=== PATIENT | female | born 1960 | race Caucasian/White ===

== ENCOUNTER 2017-07-23 07:56 | Emergency (ER) | payer OTHER ==
[~2017-07-23] VITALS: Ht 177.8 cm; Wt 90.7 kg
[2017-07-23] MEDS ORDERED: TETRACAINE HCL 0.5% OPTH SOLN 4 ML BTL ONE (08:11)
[2017-07-23] MEDS ORDERED: TETRACAINE HCL 0.5% OPTH SOLN 4 ML BTL OP ONE (08:15)
[2017-07-23] MEDS ORDERED: HYDROCODONE/APAP 5MG-325MG TAB PO PRN (08:15)
[2017-07-23] MEDS ORDERED: FLUORESCEIN SOD(OPTH) 1 MG STRP OP ONE (08:15)
[2017-07-23] MEDS: TOBRAMYCIN 0.3% (OPTH) 5 ML BTL OP SCH ×2 (08:30→08:50)
== END 2017-07-23 08:57 | disposition home or self-care (01) ==
LOC: ER 07:56
DX: H57.12 Ocular pain, left eye (principal); H10.89 Other conjunctivitis; M79.7 Fibromyalgia
CPT/HCPCS: 99282; 99283

== ENCOUNTER 2024-05-23 10:46 | Emergency (ER) | payer MEDICARE, OTHER ==
[~2024-05-23] VITALS: Ht 177.8 cm; Wt 82.4 kg
[2024-05-23 11:02] VITALS: PULSE 87; RESP 18; TEMP 97.7
[2024-05-23 12:46] VITALS: BP 136/84; PULSE 82; RESP 18; TEMP 98; O2SAT 98
== END 2024-05-23 12:40 | disposition home or self-care (01) ==
LOC: FSED 10:49
DX: H53.2 Diplopia (principal); M79.7 Fibromyalgia
CPT/HCPCS: 70450; 99283

== ENCOUNTER 2024-08-01 13:35 | Inpatient (IN) | payer MEDICARE ==
[~2024-08-01] VITALS: Ht 177.8 cm; Wt 84.4 kg
[2024-08-01 13:47] VITALS: TEMP 97.9
[2024-08-01] MEDS: ONDANSETRON HCL INJ 2MG/ML 2ML 2 MG/ML VIAL IV ONE (14:14)
[2024-08-01] MEDS: FAMOTIDINE 20 MG/2 ML VIAL IV ONE (14:14)
[2024-08-01] MEDS: SODIUM CHLORIDE 0.9% 1000ML 1,000 ML IV STA (14:15)
[2024-08-01] MEDS: KETOROLAC TROMETHAMINE 30 MG/ML VIAL IV ONE (14:15)
[2024-08-01 15:15] LABS: CREATININE, SERUM 0.78 mg/dL (0.57-1.11)
[2024-08-01] MEDS: Morphine 4mg INJECTION 4 MG/ML INJ IV ONE (15:22)
[2024-08-01 15:26] LABS: TOTAL PROTEIN 7.1 g/dL (6.5-8.1)
[2024-08-01 16:12] VITALS: PULSE 75; RESP 18
[2024-08-01] MEDS ORDERED: DIPHENHYDRAMINE HCL INJ 50 MG/ML VIAL IV PRN (17:30)
[2024-08-01 17:55] VITALS: BP 155/77; PULSE 77; RESP 18; TEMP 98.8; O2SAT 96
[2024-08-01] MEDS ORDERED: CYMBALTA60 MG PO (18:17)
[2024-08-01] MEDS ORDERED: INDOMETHACIN25 MG PO (18:17)
[2024-08-01] MEDS: LACTATED RINGER'S 1,000 ML IV SCH (18:22)
[2024-08-01] MEDS: ONDANSETRON HCL INJ 2MG/ML 2ML 2 MG/ML VIAL IV PRN (18:22)
[2024-08-01] MEDS: HYDROMORPHONE 1MG/1ML INJ IV PRN (18:22)
[2024-08-01 20:00] VITALS: BP 128/71; PULSE 81; RESP 20; TEMP 98.6; O2SAT 94
[2024-08-02] VITALS (11 sets, daily range): BP systolic 91–128; BP diastolic 45–64; PULSE 70–86; RESP 17–20; TEMP 98–99.1; O2SAT 93–97
[2024-08-02 06:23] LABS: BASOPHILS % 0.3 % (0.0-1.0); EOSINOPHILS # (AUTO) 0.1 (0.0-0.4); EOSINOPHILS % 1.1 % (0.0-6.0); HEMATOCRIT 33.1 % (34.2-44.1); HEMOGLOBIN 10.8 g/dL (12.0-16.0); LYMPHOCYTES # (AUTO) 1.4 (1.0-3.2); MEAN CORPUSCULAR HEMOGLOBIN 30.1 pg (28-32); MEAN CORPUSCULAR HGB CONC 32.6 g/dL (31-35); MEAN CORPUSCULAR VOLUME 92.2 fL (81-99); MONOCYTES # (AUTO) 0.4 (0.2-0.8); MONOCYTES % 5.9 % (4.4-11.3); NEUTROPHILS # (AUTO) 4.2 (2.1-6.9); NEUTROPHILS % 69.4 % (38.7-80.0); PLATELET COUNT 144 x10e3/uL (140-360); RED BLOOD COUNT 3.59 x10e6/uL (3.6-5.1); RED CELL DISTRIBUTION WIDTH 13.2 % (11.7-14.4); WHITE BLOOD COUNT 6.09 x10e3/uL (4.8-10.8)
[2024-08-02 06:49] LABS: ALBUMIN 3.3 g/dL (3.5-5.0); ANION GAP 12.9 mmol/L (8-16); BILIRUBIN,DIRECT 0.5 mg/dL (0.0-0.5); CALCIUM 8.2 mg/dL (8.4-10.2); CREATININE, SERUM 0.73 mg/dL (0.57-1.11); POTASSIUM 3.9 mmol/L (3.5-5.1); TOTAL PROTEIN 5.8 g/dL (6.5-8.1)
[2024-08-02 07:09] LABS: CHOL/HDL RATIO 3.2 (3.0-3.6); MAGNESIUM 1.9 MG/DL (1.3-2.1); PHOSPHORUS 3.8 MG/DL (2.3-4.7)
[2024-08-02] MEDS: FAMOTIDINE 20 MG/2 ML VIAL IV SCH (08:31)
[2024-08-02] MEDS ORDERED: ONDANSETRON HCL INJ 2MG/ML 2ML 2 MG/ML VIAL IV PRN (10:45)
[2024-08-02] MEDS ORDERED: CHLORDIAZEPOXIDE HCL 25 MG CAP PO PRN (10:45)
[2024-08-02] MEDS ORDERED: ACETAMINOPHEN 325 MG TAB PO PRN (10:45)
[2024-08-02] MEDS ORDERED: LORAZEPAM INJ 2 MG/ML VIAL IV PRN (10:45)
[2024-08-02] MEDS: CHLORDIAZEPOXIDE HCL 10 MG CAP PO SCH (11:03)
[2024-08-02] MEDS: LACTATED RINGER'S 1,000 ML IV SCH (18:40)
[2024-08-02] MEDS: HYDROMORPHONE 2MG/ML IV PRN (22:22)
[2024-08-02 23:57] LABS: % IRON SATURATION 59 % (15-50); IRON 175 ug/dL (50-170); TOTAL IRON BINDING CAPACITY 298 ug/dL (261-478); TRANSFERRIN 213 mg/dL (180-382)
[2024-08-03] VITALS (9 sets, daily range): BP systolic 91–129; BP diastolic 43–67; PULSE 58–83; RESP 17–21; TEMP 97.5–99; O2SAT 92–97
[2024-08-03] MEDS: METOCLOPRAMIDE HCL 10 MG/2ML VIAL IV SCH (05:21)
[2024-08-03 07:28] LABS: BASOPHILS % 0.5 % (0.0-1.0); EOSINOPHILS # (AUTO) 0.1 (0.0-0.4); EOSINOPHILS % 1.2 % (0.0-6.0); HEMATOCRIT 30.3 % (34.2-44.1); HEMOGLOBIN 9.9 g/dL (12.0-16.0); LYMPHOCYTES # (AUTO) 1.7 (1.0-3.2); LYMPHOCYTES % 27.6 % (18.0-39.1); MEAN CORPUSCULAR HEMOGLOBIN 30.2 pg (28-32); MEAN CORPUSCULAR HGB CONC 32.7 g/dL (31-35); MEAN CORPUSCULAR VOLUME 92.4 fL (81-99); MONOCYTES # (AUTO) 0.4 (0.2-0.8); MONOCYTES % 5.8 % (4.4-11.3); NEUTROPHILS # (AUTO) 3.9 (2.1-6.9); NEUTROPHILS % 64.7 % (38.7-80.0); PLATELET COUNT 125 x10e3/uL (140-360); RED BLOOD COUNT 3.28 x10e6/uL (3.6-5.1); RED CELL DISTRIBUTION WIDTH 12.5 % (11.7-14.4); WHITE BLOOD COUNT 6.01 x10e3/uL (4.8-10.8)
[2024-08-03 07:56] LABS: ALBUMIN 2.9 g/dL (3.5-5.0); ALBUMIN/GLOBULIN RATIO 1.3 (0.8-2.0); ANION GAP 11.9 mmol/L (8-16); BILIRUBIN,TOTAL 0.9 mg/dL (0.2-1.2); CREATININE, SERUM 0.71 mg/dL (0.57-1.11); MAGNESIUM 1.7 MG/DL (1.3-2.1); PHOSPHORUS 3.9 MG/DL (2.3-4.7); POTASSIUM 3.9 mmol/L (3.5-5.1); TOTAL PROTEIN 5.2 g/dL (6.5-8.1)
[2024-08-03] MEDS: DULOXETINE HCL 30 MG DELAYED RELEASE PO SCH (08:52)
[2024-08-03] MEDS: CYANOCOBALAMIN INJ 1,000 MCG/ML VIAL IM SCH (12:46)
[2024-08-03] MEDS ORDERED: CYANOCOBALAMIN INJ 1,000 MCG/ML VIAL IM ONE (23:00)
[2024-08-04] VITALS (8 sets, daily range): BP systolic 107–132; BP diastolic 54–75; PULSE 69–81; RESP 18–21; TEMP 98–99; O2SAT 94–98
[2024-08-04 06:38] LABS: BASOPHILS % 0.5 % (0.0-1.0); EOSINOPHILS # (AUTO) 0.1 (0.0-0.4); EOSINOPHILS % 2.2 % (0.0-6.0); HEMATOCRIT 30.4 % (34.2-44.1); LYMPHOCYTES # (AUTO) 1.5 (1.0-3.2); LYMPHOCYTES % 26.7 % (18.0-39.1); MEAN CORPUSCULAR HEMOGLOBIN 30.2 pg (28-32); MEAN CORPUSCULAR HGB CONC 32.9 g/dL (31-35); MEAN CORPUSCULAR VOLUME 91.8 fL (81-99); MONOCYTES # (AUTO) 0.3 (0.2-0.8); MONOCYTES % 5.8 % (4.4-11.3); NEUTROPHILS # (AUTO) 3.6 (2.1-6.9); NEUTROPHILS % 64.3 % (38.7-80.0); PLATELET COUNT 125 x10e3/uL (140-360); RED BLOOD COUNT 3.31 x10e6/uL (3.6-5.1); RED CELL DISTRIBUTION WIDTH 12.2 % (11.7-14.4); WHITE BLOOD COUNT 5.55 x10e3/uL (4.8-10.8)
[2024-08-04 07:30] LABS: ALBUMIN 2.8 g/dL (3.5-5.0); ALBUMIN/GLOBULIN RATIO 1.2 (0.8-2.0); ANION GAP 11.4 mmol/L (8-16); BILIRUBIN,TOTAL 0.8 mg/dL (0.2-1.2); CALCIUM 7.8 mg/dL (8.4-10.2); CREATININE, SERUM 0.62 mg/dL (0.57-1.11); MAGNESIUM 1.7 MG/DL (1.3-2.1); PHOSPHORUS 3.3 MG/DL (2.3-4.7); TOTAL PROTEIN 5.2 g/dL (6.5-8.1)
[2024-08-04 07:32] LABS: POTASSIUM 3.4 mmol/L (3.5-5.1)
[2024-08-04] MEDS ORDERED: CYANOCOBALAMIN INJ 1,000 MCG/ML VIAL IM SCH (09:00)
[2024-08-04] MEDS: GABAPENTIN 100 MG CAP PO SCH (14:24)
[2024-08-04] MEDS: POTASSIUM CHLORIDE 10MEQ EA PO STA (23:03)
[2024-08-05] VITALS (7 sets, daily range): BP systolic 122–133; BP diastolic 73–85; PULSE 68–76; RESP 18; TEMP 97.6–98.6; O2SAT 95–98
[2024-08-05 07:01] LABS: ALANINE AMINOTRANSFERASE 65 IU/L (0-55); ALBUMIN 3.1 g/dL (3.5-5.0); ALBUMIN/GLOBULIN RATIO 1.1 (0.8-2.0); ALKALINE PHOSPHATASE 78 IU/L (40-150); ANION GAP 13.5 mmol/L (8-16); BILIRUBIN,TOTAL 0.8 mg/dL (0.2-1.2); BLOOD UREA NITROGEN < 5 mg/dL (7-26); CALCIUM 8.6 mg/dL (8.4-10.2); CARBON DIOXIDE 25 mmol/L (22-29); CHLORIDE 107 mmol/L (98-107); CREATININE, SERUM 0.67 mg/dL (0.57-1.11); EST GLOMERULAR FILTRATION RATE 97 ML/MIN (>=60); GLUCOSE 100 mg/dL (74-118); LIPASE 131 U/L (8-78); POTASSIUM 3.5 mmol/L (3.5-5.1); SODIUM 142 mmol/L (136-145); TOTAL PROTEIN 5.8 g/dL (6.5-8.1)
[2024-08-05 07:02] LABS: BUN/CREATININE RATIO 7 (6-25)
[2024-08-05] MEDS: PANTOPRAZOLE SOD 40 MG TABEC PO SCH (09:04)
[2024-08-05] MEDS: HYDROCODONE/APAP 10MG-325MG TAB PO PRN (09:06)
[2024-08-05] MEDS: AMYLAS/CELLU/LIPAS/PROTEA/BILE 12,000 UNIT CAP PO SCH (12:41)
[2024-08-06 01:00] VITALS: BP 140/73; PULSE 64; RESP 16; TEMP 97.8; O2SAT 98
[2024-08-06 04:02] VITALS: BP 116/72; PULSE 71; RESP 16; TEMP 97.9; O2SAT 96
[2024-08-06 09:00] VITALS: BP 146/78; PULSE 71; RESP 20; TEMP 97.9; O2SAT 100
[2024-08-06 11:52] VITALS: BP 139/69; PULSE 51; RESP 19; TEMP 97.5; O2SAT 99
[2024-08-06] MEDS ORDERED: ONDANSETRON HCL 4 MG ORAL DISINTEGRATING TAB PO PRN (13:15)
[2024-08-14 07:02] LABS: HEPATITIS A ANTIBODY IGM (P) Negative; HEPATITIS B CORE IGM (P) Negative; HEPATITIS B SURFACE AG (P) Negative
[2024-08-14 07:03] LABS: HEPATITIS C ANTIBODY Non Reactive
== END 2024-08-06 12:50 | disposition home or self-care (01) | DRG 439 ==
LOC: FSED 13:39 → ERHOLD 15:12 → MED/SURG3 17:33
PROVIDERS: ADMIT Internal Medicine; ATTEND Internal Medicine
DX: K85.20 Alcohol induced acute pancreatitis without necrosis or infection (principal); F10.139 Alcohol abuse with withdrawal, unspecified; E86.0 Dehydration; R73.9 Hyperglycemia, unspecified; E87.6 Hypokalemia; D64.9 Anemia, unspecified; K86.89 Other specified diseases of pancreas; E53.8 Deficiency of other specified B group vitamins; M79.7 Fibromyalgia; R51.9 Headache, unspecified; G89.29 Other chronic pain; Z71.3 Dietary counseling and surveillance; Z68.26 Body mass index [BMI] 26.0-26.9, adult; Z71.81 Spiritual or religious counseling; Z90.49 Acquired absence of other specified parts of digestive tract
CPT/HCPCS: 36415; 74177; 80048; 80053; 80061; 80076; 81003; 81161; 81220; 82607; 82728; 82746; 83036; 83540; 83690; 83735; 84100; 84466; 85025; 85045; 86301; 96375; 99252; 99284; J1171; J1308; J1885; J2270; J2405; J2470; J2543; J2765; J3420; J7030

== ENCOUNTER 2024-11-24 16:48 | Emergency (ER) | payer MEDICARE ==
[~2024-11-24] VITALS: Ht 180.3 cm; Wt 80.9 kg
[~2024-11-24 16:48] MED LIST: CYMBALTA60 MG PO; INDOMETHACIN25 MG PO
[2024-11-24 16:55] VITALS: PULSE 78; RESP 18; TEMP 97
[2024-11-24] MEDS ORDERED: FAMOTIDINE 20 MG/2 ML VIAL IV ONE (17:33)
[2024-11-24] MEDS ORDERED: Morphine 2mg Syringe 2 MG/ML SYR ONE (17:34)
[2024-11-24] MEDS ORDERED: IOPAMIDOL 370 MG/ML 100 ML INFUS..BTL INJ ONE (17:36)
[2024-11-24] MEDS: FAMOTIDINE 20 MG/2 ML VIAL IV STA (17:39)
[2024-11-24] MEDS: ONDANSETRON HCL INJ 2MG/ML 2ML 2 MG/ML VIAL IV STA (17:40)
[2024-11-24] MEDS: Morphine 2mg Syringe 2 MG/ML SYR IV ONE (17:40)
[2024-11-24] MEDS: SODIUM CHLORIDE 0.9% 1000ML 1,000 ML IV ONE (17:40)
[2024-11-24] MEDS ORDERED: PEPCID20 MG PO (21:10)
[2024-11-24] MEDS ORDERED: ONDANSETRON ODT4 MG PO (21:10)
[2024-11-24 21:35] VITALS: BP 150/82; PULSE 76; RESP 18; TEMP 98; O2SAT 98
== END 2024-11-24 21:35 | disposition home or self-care (01) ==
LOC: FSED 17:17
DX: R10.13 Epigastric pain (principal); K29.70 Gastritis, unspecified, without bleeding; N21.0 Calculus in bladder; K57.90 Diverticulosis of intestine, part unspecified, without perforation or abscess without bleeding; R11.0 Nausea; R53.1 Weakness; M79.7 Fibromyalgia; R94.31 Abnormal electrocardiogram [ECG] [EKG]
CPT/HCPCS: 36415; 74177; 80053; 81003; 83690; 84484; 85025; 93005; 99284; J1308; J2270; J2405; J7030; Q9967